=== PATIENT | male | born 1980 | race African-American/Black ===

== ENCOUNTER 2018-12-05 21:46 | Emergency (ER) | payer OTHER | END 2018-12-06 00:11 | disposition short-term general hospital (02) | LOC: JER 12-06 00:11 | PROC: 3E033NZ Introduction of Analgesics, Hypnotics, Sedatives into Peripheral Vein, Percutaneous Approach (ICD-10-PCS; principal; 2018-12-05) | PROC: 3E033GC Introduction of Other Therapeutic Substance into Peripheral Vein, Percutaneous Approach (ICD-10-PCS; 2018-12-05) | DX: R07.9 Chest pain, unspecified (principal); F17.210 Nicotine dependence, cigarettes, uncomplicated; E66.9 Obesity, unspecified; Z68.36 Body mass index [BMI] 36.0-36.9, adult ==

== ENCOUNTER 2019-05-25 22:46 | Emergency (ER) | payer OTHER ==
[2019-05-25 22:49] VITALS: TEMP 97.3; BMI 36.5
[2019-05-26] MEDS ORDERED: ASPIRIN 81 MG CHEWABLE TABLETS PO ONE (00:58)
[2019-05-26] MEDS ORDERED: ASPIRIN 81 MG CHEWABLE TABLETS ONE (01:29)
--- NOTE | 2019-05-26 01:58 | PDOC ---
Documentation entered by Ruthie Mir SCRIBE, acting as scribe for Laura Jasso MD. Laura Jasso MD: This documentation has been prepared by the miriamibeClarke Maria, SCRIBE, under my direction and personally reviewed by me in its entirety. I confirm that the documentation accurately reflects all work, treatment, procedures, and medical decision making performed by me. History of Present Illness - General History Source: Patient Exam Limitations: No Limitations - History of Present Illness Initial Comments: 05/26/19 01:35 Patient is a 38 year old male with a significant PMH of borderline HTN and Diabetes who presents to the ED with left sided chest pain. Patient states the pain began 3 days ago and progressively worsened today reaching a maximum of 9/ 10 in severity but is now a 5/10. Patient also notes having mild SOB when his chest pain was at its maximum severity. He denies any recent fevers, chills, headache or dizziness. He denies any recent nausea, vomiting, diarrhea or constipation. Allergies: NKDA Past surgical history: None reported. Social History: Nonsmoker. Occasional EtOH use and daily recreational drug use (1-2 blunts a day). <Laura Jasso - Last Filed: 05/26/19 02:25> <Baylee Betancourt - Last Filed: 05/26/19 05:56> - General Chief Complaint: Chest Pain Stated Complaint: CHEST PAIN Time Seen by Provider: 05/26/19 00:57 Past History - Past Medical History COPD: No - Psycho Social/Smoking Cessation Hx Smoking History: Never smoked Drug/Substance Use Hx: Yes (MARIJUANA) <Laura Jasso - Last Filed: 05/26/19 02:25> <Baylee Betancourt - Last Filed: 05/26/19 05:56> - Past Medical History Allergies/Adverse Reactions: Allergies Allergy/AdvReac Type Severity Reaction Status Date / Time No Known Allergies Allergy Verified 05/25/19 22:49 Home Medications: Ambulatory Orders NK [No Known Home Medication] 12/05/18 Review of Systems - Review of Systems Able to Perform ROS?: Yes Comments:: 05/26/19 01:39 CONSTITUTIONAL: Absent: fever, chills, diaphoresis, generalized weakness, malaise, loss of appetite HEENT: Absent: rhinorrhea, nasal congestion, throat pain, throat swelling, difficulty swallowing, mouth swelling, ear pain, eye pain, visual Changes CARDIOVASCULAR: + chest pain Absent: syncope, palpitations, irregular heart rate, lightheadedness, peripheral edema RESPIRATORY: Absent: cough, shortness of breath, dyspnea with exertion, orthopnea, wheezing, stridor, hemoptysis GASTROINTESTINAL: Absent: abdominal pain, abdominal distension, nausea, vomiting, diarrhea, constipation, melena, hematochezia GENITOURINARY: Absent: dysuria, frequency, urgency, hesitancy, hematuria, flank pain, genital pain MUSCULOSKELETAL: Absent: myalgia, arthralgia, joint swelling SKIN: Absent: rash, itching, pallor HEMATOLOGIC/IMMUNOLOGIC: Absent: easy bleeding, easy bruising, lymphadenopathy, frequent infections ENDOCRINE: Absent: unexplained weight gain, unexplained weight loss, heat intolerance, cold intolerance NEUROLOGIC: Absent: headache, focal weakness or paresthesias, dizziness, unsteady gait, seizure, mental status changes, bladder or bowel incontinence PSYCHIATRIC: Absent: anxiety, depression, suicidal or homicidal ideation, hallucinations. <Laura Jasso - Last Filed: 05/26/19 02:25> *Physical Exam - Vital Signs Last Vital Signs Temp Pulse Resp BP Pulse Ox 97.3 F L 86 18 144/87 99 05/25/19 22:47 05/25/19 22:47 05/25/19 22:47 05/25/19 22:47 05/25/19 22:47 - Physical Exam Comments: 05/26/19 01:40 GENERAL: Well developed, well nourished. Awake and alert. No acute distress. HEENT: Normocephalic, atraumatic. PERRLA, EOMI. No conjunctival pallor. Sclera are non- icteric. Moist mucous membranes. Oropharynx is clear. NECK: Supple. Full ROM. No JVD. Carotid pulses 2+ and symmetric, without bruits. No thyromegaly. No lymphadenopathy. CARDIOVASCULAR: Regular rate and rhythm. No murmurs, rubs, or gallops. Distal pulses are 2+ and symmetric. PULMONARY: No evidence of respiratory distress. Lungs clear to auscultation bilaterally. No wheezing, rales or rhonchi. ABDOMINAL: Soft. Non-tender. Non-distended. No rebound or guarding. No organomegaly. Normoactive bowel sounds. MUSCULOSKELETAL Normal range of motion at all joints. No bony deformities or tenderness. No CVA tenderness. EXTREMITIES: No cyanosis. No clubbing. No edema. No calf tenderness. SKIN: Warm and dry. Normal capillary refill. No rashes. No jaundice. NEUROLOGICAL: Alert, awake, appropriate. Cranial nerves 2-12 intact. No deficits to light touch and temperature in face, upper extremities and lower extremities. No motor deficits in the in face, upper extremities and lower extremities. Normoreflexic in the upper and lower extremities. Normal speech. Toes are down- going bilaterally. Gait is normal without ataxia. PSYCHIATRIC: Cooperative. Good eye contact. Appropriate mood and affect. <Laura Jasso - Last Filed: 05/26/19 02:25> - Vital Signs Last Vital Signs Temp Pulse Resp BP Pulse Ox 97.3 F L 68 18 129/83 98 05/25/19 22:47 05/26/19 03:27 05/26/19 03:27 05/26/19 03:27 05/26/19 03:27 <Baylee Betancourt - Last Filed: 05/26/19 05:56> ED Treatment Course - RADIOLOGY Radiology Studies Ordered: Category Date Time Status CHEST PA & LAT [RAD] Stat Radiology 05/26/19 00:58 Ordered - Medications Given in the ED: ED Medications Discontinued Medications Generic Name Dose Route Start Last Admin Trade Name Freq PRN Reason Stop Dose Admin Aspirin 162 mg 05/26/19 00:58 05/26/19 01:33 Asa - PO 05/26/19 00:59 162 mg ONCE ONE Administration <Laura Jasso - Last Filed: 05/26/19 02:25> - LABORATORY CBC & Chemistry Diagram: 05/26/19 01:40 05/26/19 01:40 - ADDITIONAL ORDERS Additional order review: Laboratory Results 05/26/19 05/26/19 01:40 01:40 PT with INR 11.80 INR 1.00 PTT (Actin FS) 35.9 Sodium 139 Potassium 4.1 Chloride 108 H Carbon Dioxide 28 Anion Gap 3 L BUN 15.6 Creatinine 1.4 H Est GFR (CKD-EPI)AfAm 72.32 Est GFR (CKD-EPI)NonAf 62.40 Random Glucose 107 H Calcium 8.6 Magnesium 2.1 Total Bilirubin 0.2 AST 45 H ALT 85 H Alkaline Phosphatase 75 Creatine Kinase 467 H Creatine Kinase Index 0.2 CK-MB (CK-2) 1.0 Troponin I < 0.02 Total Protein 7.1 Albumin 3.8 05/26/19 01:40 RBC 4.70 MCV 87.0 MCHC 33.1 RDW 13.7 MPV 8.5 Neutrophils % 46.0 Lymphocytes % 31.1 D Monocytes % 10.9 H Eosinophils % 10.7 H D Basophils % 1.3 - Medications Given in the ED: ED Medications Discontinued Medications Generic Name Dose Route Start Last Admin Trade Name Kelechi PRN Reason Stop Dose Admin Aspirin 162 mg 05/26/19 00:58 05/26/19 01:33 Asa - PO 05/26/19 00:59 162 mg ONCE ONE Administration <Baylee Betancourt - Last Filed: 05/26/19 05:56> Medical Decision Making - Medical Decision Making 05/26/19 01:52 this 38 yo male has had several days of left sided chest pain ,nonradiating, it was 5/10 he has not had any nausea,diaphoresis his ekg is NSR @ 68 bpm,inverted ts in aVR,V1 pt given aspirin plan pt to have 2 troponins /cxr ,if negative d/c home <Laura Jasso - Last Filed: 05/26/19 02:25> - Medical Decision Making 05/26/19 05:56 I received pt on signout. His CXR is normal and his 2nd card enzyme is normal and he looks great and he will be sent home <Baylee Betancourt - Last Filed: 05/26/19 05:56> Discharge <Laura Jasso - Last Filed: 05/26/19 02:25> - Discharge Information Problems reviewed: Yes - Admission No <Baylee Betancourt - Last Filed: 05/26/19 05:56> - Discharge Information Clinical Impression/Diagnosis: Atypical chest pain, Muscular chest pain Condition: Stable Disposition: HOME - Patient Discharge Instructions Patient Printed Discharge Instructions: Eating a Diet Rich in Fruits and Vegetables, DI for Atypical Chest Pain - Post Discharge Activity Work/Back to School Note: Back to Work
[2019-05-26 02:06] LABS: BASO % 1.3 % (0-2.0); EOS % 10.7 % (0-4.5); HEMATOCRIT 40.9 % (35.4-49); HEMOGLOBIN 13.6 GM/dL (11.7-16.9); LYMPH % 31.1 % (8-40); MCH 28.8 pg (25.7-33.7); MCHC 33.1 g/dl (32.0-35.9); MEAN PLT VOLUME 8.5 fl (7.5-11.1); MONO % 10.9 % (3.8-10.2); PLATELET COUNT 212 K/MM3 (134-434); RDW 13.7 % (11.9-15.9); WHITE BLOOD COUNT 4.2 K/mm3 (4.0-10.0)
[2019-05-26 02:38] LABS: ALBUMIN 3.8 g/dl (3.4-5.0); ALK PHOS 75 U/L (45-117); ANION GAP 3 MMOL/L (8-16); BILIRUBIN,TOTAL 0.2 mg/dL (0.2-1); BLOOD UREA NITROGEN 15.6 mg/dL (7-18); CALCIUM 8.6 mg/dL (8.5-10.1); CHLORIDE 108 mmol/L (98-107); CO2 28 mmol/L (21-32); CREATININE 1.4 mg/dL (0.55-1.3); GLUCOSE,RANDOM 107 mg/dL (74-106); MAGNESIUM 2.1 mg/dL (1.8-2.4); POTASSIUM 4.1 mmol/L (3.5-5.1); SGOT/AST 45 U/L (15-37); SGPT/ALT 85 U/L (13-61); SODIUM 139 mmol/L (136-145); TOT PROT 7.1 g/dl (6.4-8.2)
[2019-05-26 02:43] LABS: PROTHROMBIN TIME (PATIENT) 11.8 SEC (9.7-13.0)
[2019-05-26 02:46] LABS: ACTIVATED PTT 35.9 SECONDS (25.2-36.5)
[2019-05-26 03:28] VITALS: BP 129/83; PULSE 68
--- NOTE | 2019-05-26 15:58 | EKG ---
Test Reason : Blood Pressure : / mmHG Vent. Rate : 064 BPM Atrial Rate : 064 BPM P-R Int : 196 ms QRS Dur : 096 ms QT Int : 394 ms P-R-T Axes : 006 061 021 degrees QTc Int : 406 ms NORMAL SINUS RHYTHM POSSIBLE ANTERIOR INFARCT , AGE UNDETERMINED ABNORMAL ECG WHEN COMPARED WITH ECG OF 05-DEC-2018 22:23, Confirmed by MITA CEJA MD ([id number]) on 05/26/2019 3:58:26 PM Referred By: Confirmed By:MITA CEJA MD
--- NOTE | 2019-05-28 15:57 | EKG ---
Test Reason : Blood Pressure : / mmHG Vent. Rate : 068 BPM Atrial Rate : 068 BPM P-R Int : 208 ms QRS Dur : 094 ms QT Int : 396 ms P-R-T Axes : 058 062 030 degrees QTc Int : 421 ms POOR DATA QUALITY, INTERPRETATION MAY BE ADVERSELY AFFECTED NORMAL SINUS RHYTHM NORMAL ECG WHEN COMPARED WITH ECG OF 25-MAY-2019 23:01, NO SIGNIFICANT CHANGE WAS FOUND Confirmed by MICHA MCNAMARA, DIAZ ([id number]) on 05/28/2019 3:55:55 PM Referred By: Confirmed By:DIAZ MUSE MD
== END 2019-05-26 05:59 | disposition home or self-care (01) ==
LOC: JER 22:46
DX: R07.89 Other chest pain (principal); I10 Essential (primary) hypertension; E11.9 Type 2 diabetes mellitus without complications
CPT/HCPCS: 36415; 71046-TC-FY; 80053; 82550; 82553; 83735; 84484; 85025; 85610; 85730; 93005; 93010; 99284-25

== ENCOUNTER 2020-06-11 11:09 | Emergency (ER) | payer OTHER ==
[2020-06-11 11:14] VITALS: BMI 38.6
[2020-06-11] MEDS ORDERED: SODIUM CHLORIDE 1,000 ML IV STA (11:50)
[2020-06-11 12:29] LABS: EOS % 7.4 % (0-4.5); HEMATOCRIT 44.8 % (35.4-49); HEMOGLOBIN 14.7 GM/dL (11.7-16.9); LYMPH % 37.2 % (8-40); MCH 28.6 pg (25.7-33.7); MCHC 32.9 g/dl (32.0-35.9); MEAN PLT VOLUME 8.5 fl (7.5-11.1); NEUT % 44.4 % (42.8-82.8); PLATELET COUNT 217 K/MM3 (134-434); RBC 5.15 M/mm3 (4.00-5.60); RDW 13.9 % (11.9-15.9); WHITE BLOOD COUNT 4.7 K/mm3 (4.0-10.0)
[2020-06-11 12:43] LABS: INR 1.06 (0.83-1.09)
[2020-06-11 12:47] LABS: CHLORIDE 105 mmol/L (98-107); POTASSIUM 4.2 mmol/L (3.5-5.1); SODIUM 140 mmol/L (136-145)
[2020-06-11 12:50] LABS: ALBUMIN 3.9 g/dl (3.4-5.0); ANION GAP 7 MMOL/L (8-16); BLOOD UREA NITROGEN 15.8 mg/dL (7-18); CO2 28 mmol/L (21-32); GLUCOSE,RANDOM 95 mg/dL (74-106); MAGNESIUM 2.1 mg/dL (1.8-2.4)
[2020-06-11 12:52] LABS: SGPT/ALT 36 U/L (13-61)
[2020-06-11 12:53] LABS: CREATININE 1.3 mg/dL (0.55-1.3); SGOT/AST 26 U/L (15-37)
[2020-06-11 12:54] LABS: BILIRUBIN,TOTAL 0.4 mg/dL (0.2-1); TOT PROT 7.5 g/dl (6.4-8.2)
[2020-06-11 12:55] LABS: ALK PHOS 65 U/L (45-117)
[2020-06-11 13:59] VITALS: BP 131/78; PULSE 74; TEMP 98.1
== END 2020-06-11 14:32 | disposition home or self-care (01) ==
LOC: JER 11:09
DX: R07.9 Chest pain, unspecified (principal); I10 Essential (primary) hypertension
CPT/HCPCS: 36415; 70450-TC; 71046-TC-FY; 80053; 82550; 82553; 83735; 84484; 85025; 85610; 85730; 93005; 93010; 99285-25; C9803; U0003

== ENCOUNTER 2021-06-22 17:58 | Emergency (ER) | payer OTHER ==
[2021-06-22 19:05] VITALS: BP 136/95; PULSE 97; TEMP 99.5; BMI 37.5
== END 2021-06-22 22:30 | disposition home or self-care (01) ==
LOC: JER 17:58
DX: M79.10 Myalgia, unspecified site (principal)
CPT/HCPCS: 99283-25; C9803; U0003; U0005